=== PATIENT | male | born 1960 | race Caucasian/White ===

== ENCOUNTER → 2019-04-23 | Outpatient (CLI) | payer OTHER ==
[~2019-04-23] VITALS: Ht 180.3 cm; Wt 74.8 kg
[~2019-04-23] MED LIST: SYNTHROID112 MC1 PO
--- NOTE | 2019-04-25 16:06 | PATH ---
[facility] [address] [place] [address] PATHOLOGY RPT PROCEDURE Name: ABI WALSH Room #: REG [facility] Smooth.#: [id number] Admission: 04/23/19 Date of : 58 Discharge: Report #: [id number] Path Case #: [id number] [facility] Accession Number: [id number] . 01 Material submitted: . rectum - POLYP AT RECTUM . 01 Clinical history: . Preop DX: hx of polyps Postop DX: rectal polyp . 02 Diagnosis: Polyp, at rectum, endoscopic biopsy: - Hyperplastic polyp. - Negative for dysplasia. . (IUV:mml; 04/25/2019) QLM 04/25/2019 1111 Local . 02 Electronically signed: . Akosua Butler MD, Pathologist NPI- [id number] . 01 Gross description: . Received in formalin labeled "Walsh, Abi, polyp at rectum," is a 0.5 x 0.4 x 0.1 cm aggregate of brooks-brown soft tissue fragments and hemorrhagic mucoid material. The specimen is submitted entirely in cassette A1. ([facility]; 04/24/2019) XDC/XDC 04/24/2019 0946 Local . 02 Pathologist provided ICD-10: K62.1 . 02 CPT . 446285 Specimen Comment: A courtesy copy of this report has been sent to Specimen Comment: [phone], . Specimen Comment: Report sent to / DR AVENDAÑO Performed at: [address], [place], [place] [id number] MD Boom Rubio MD Phone: [phone] Performed at: [address] [id number] MD Akosua Butler MD Phone: [phone]
--- NOTE | 2019-04-28 12:48 | P ---
[facility] [place] [address] PROCEDURE REPORT Name: ABI CELESTE Tri [id number] Admission: 04/23/19 Attend Phys: Audie Ramos Discharge: Date of : 58 Report #: [id number] THIS REPORT FOR: //name// CC: Audie Rosario DATE OF SERVICE: 04/23/2019 PROCEDURE PERFORMED: Colonoscopy with biopsies. HISTORY OF PRESENT ILLNESS: The patient is a 58-year-old male with history of colon polyps, here for routine followup. Denies any symptoms. No family history of colon cancer. DESCRIPTION OF PROCEDURE: The risks and benefits of the procedure were explained to the patient, those risks including but not limited to bleeding, perforation and the risk of sedation. He understood these risks and gave informed consent. Sedation was given using propofol per anesthesia. Next, a digital rectal exam was initially performed, which was normal. Next, using a standard Olympus colonoscope, the scope was placed in the patient's anus and advanced under direct vision to the cecum. The overall prep was excellent. The cecum and ileocecal valve were normal in appearance. Ascending, transverse, descending and sigmoid colon were normal. In the rectum, there was a 5 mm sessile polyp. This was removed with cold forceps, otherwise normal. On retroflexion, no abnormalities were noted. The scope was then withdrawn and the procedure terminated. The patient tolerated the procedure well. IMPRESSION: 1. Small rectal polyp. 2. Otherwise, normal colonoscopy. RECOMMENDATIONS: 1. Await biopsy results. 2. If polyp is hyperplastic, repeat in 10 years; if adenomatous polyp, repeat in 5 years. Thank you for allowing me to participate in his care. <ELECTRONICALLY SIGNED> By: Audie Ahn MD 04/28/19 1248 [id number] Audie Ahn MD /nt
== END | disposition home or self-care (01) ==
LOC: GI 08:51
DX: Z12.11 Encounter for screening for malignant neoplasm of colon (principal); Z86.010 Personal history of colon polyps; K62.1 Rectal polyp; E03.9 Hypothyroidism, unspecified; Z85.71 Personal history of Hodgkin lymphoma; Z98.890 Other specified postprocedural states; Z79.899 Other long term (current) drug therapy; Z90.81 Acquired absence of spleen; Z91.041 Radiographic dye allergy status
CPT/HCPCS: 62110; 62900